=== PATIENT | female | born 1955 | race Caucasian/White ===

== ENCOUNTER 2019-06-18 06:59 | Outpatient (CLI) | payer MEDICARE, OTHER ==
[2019-06-18 07:23] LABS: #Basophils 0.1 thou/uL (0.0-0.2); #Eosinphils 0.2 thou/uL (0.0-0.7); #Lymphocytes 0.6 thou/uL (1.20-3.40); #Monocytes 0.5 thou/uL (0.11-0.59); #Neutrophils 2.1 thou/uL (1.40-6.50); %Basophils 1.6 % (0.0-1.0); %Eosinophils 5.4 % (0.0-10.0); %Lymphocytes 18.1 % (21.0-51.0); %Monocytes 13.3 % (0.0-10.0); %Neutrophils 61.7 % (42.0-75.0); Hemoglobin 13.2 g/dL (12.0-16.0); Mean Corpuscular HGB CONC 30.8 g/dL (32.0-36.0); Mean Corpuscular Hemoglobin 30.2 pg (27.0-31.0); Mean Platelet Volume 9.4 fL (7.4-10.4); Platelet Count 211 thou/uL (130-400); RBC Distribution Width 11.7 % (11.5-14.5); Red Blood Cell (RBC) Count 4.37 mill/uL (4.20-5.40); White Blood Cell (WBC) Count 3.4 thou/uL (4.8-10.8)
[2019-06-18 07:48] LABS: ALT (SGPT) 24 U/L (8-55); AST (SGOT) 25 U/L (5-34); Albumin 4.3 g/dL (3.4-4.8); Alkaline Phosphatase 63 U/L (40-110); Anion Gap 15 mmol/L (10-20); BUN (Urea Nitrogen) 23 mg/dL (9.8-20.1); Bilirubin, Total 0.6 mg/dL (0.2-1.2); Calc. Creatinine Clearance 0 mL/min (70-130); Calcium 9.6 mg/dL (7.8-10.44); Carbon Dioxide 25 mmol/L (23-31); Cardiac Risk 2.5 (Less than 4.5); Chloride 107 mmol/L (98-107); Cholesterol 193 mg/dl (< 200 Desired); Estimated GFR-MDRD 66; Glucose 108 mg/dL (80-115); HDL Cholesterol 77 mg/dL (>60 Neg Risk); LDL Cholesterol, Calculated 99 mg/dL; Potassium 4.3 mmol/L (3.5-5.1); Protein, Total 6.3 g/dL (6.0-8.3); Sodium 143 mmol/L (136-145); Triglycerides 86 mg/dL (Less than 150)
[2019-06-18 08:03] LABS: Thyroid Stimulating Hormone 1.8553 uIU/mL (0.35-4.94)
[2019-06-18 13:06] LABS: Vitamin D, 25 Hydroxy 91.2 ng/ml (> 30.0)
== END 2019-06-18 07:00 | disposition home or self-care (01) ==
LOC: MADLAB 06:59
PROVIDERS: ATTEND Family Medicine
DX: E78.00 Pure hypercholesterolemia, unspecified (principal); N95.1 Menopausal and female climacteric states
CPT/HCPCS: 36415; 80053; 80061; 82306; 84443; 85025

== ENCOUNTER 2021-06-06 06:54 | Outpatient (CLI) | payer MEDICARE, OTHER ==
[2021-06-06 08:32] LABS: #Eosinphils 0.2 thou/uL (0.0-0.7); #Lymphocytes 0.5 thou/uL (1.20-3.40); #Monocytes 0.4 thou/uL (0.11-0.59); #Neutrophils 2.1 thou/uL (1.40-6.50); %Basophils 1.4 % (0.0-1.0); %Eosinophils 6.3 % (0.0-10.0); %Lymphocytes 14.6 % (21.0-51.0); %Monocytes 12.2 % (0.0-10.0); %Neutrophils 65.5 % (42.0-75.0); Hemoglobin 13.4 g/dL (12.0-16.0); Mean Corpuscular HGB CONC 31.9 g/dL (32.0-36.0); Mean Corpuscular Hemoglobin 30.9 pg (27.0-31.0); Mean Corpuscular Volume 96.8 fL (78.0-98.0); Mean Platelet Volume 10.7 fL (7.4-10.4); Platelet Count 204 thou/uL (130-400); RBC Distribution Width 11.6 % (11.5-14.5); Red Blood Cell (RBC) Count 4.34 mill/uL (4.20-5.40); White Blood Cell (WBC) Count 3.1 thou/uL (4.8-10.8)
[2021-06-06 08:39] LABS: ALT (SGPT) 19 U/L (8-55); AST (SGOT) 22 U/L (5-34); Albumin 4.2 g/dL (3.4-4.8); Alkaline Phosphatase 65 U/L (40-110); Anion Gap 14 mmol/L (10-20); BUN (Urea Nitrogen) 14 mg/dL (9.8-20.1); Bilirubin, Total 0.5 mg/dL (0.2-1.2); Calc. Creatinine Clearance 0 mL/min (70-130); Calcium 9.7 mg/dL (7.8-10.44); Carbon Dioxide 26 mmol/L (23-31); Cardiac Risk 2.5 (Less than 4.5); Chloride 107 mmol/L (98-107); Cholesterol 184 mg/dl (< 200 Desired); Globulin 2.5 g/dL (2.4-3.5); Glucose 114 mg/dL (80-115); HDL Cholesterol 73 mg/dL (>60 Neg Risk); LDL Cholesterol, Calculated 95 mg/dL; Potassium 3.9 mmol/L (3.5-5.1); Protein, Total 6.7 g/dL (5.8-8.1); Sodium 143 mmol/L (136-145); Triglycerides 81 mg/dL (Less than 150)
[2021-06-06 09:12] LABS: Anisocytosis SLIGHT = 6-15 cells (100X) (0-5/hpf); Platelet Morphology Comment Appears Adequate
== END 2021-06-06 06:55 | disposition home or self-care (01) ==
LOC: MADLAB 06:54
PROVIDERS: ATTEND Family Medicine
DX: I10 Essential (primary) hypertension (principal); E78.00 Pure hypercholesterolemia, unspecified
CPT/HCPCS: 36415; 80053; 80061; 84443; 85025

== ENCOUNTER 2021-08-25 08:29 | Emergency (ER) | payer MEDICARE, OTHER | END 2021-08-25 10:10 | disposition home or self-care (01) | LOC: MADERS 08:29 | DX: R42 Dizziness and giddiness (principal); K21.9 Gastro-esophageal reflux disease without esophagitis; E78.5 Hyperlipidemia, unspecified; I10 Essential (primary) hypertension; E78.00 Pure hypercholesterolemia, unspecified; Z86.73 Personal history of transient ischemic attack (TIA), and cerebral infarction without residual deficits; Z79.82 Long term (current) use of aspirin | CPT/HCPCS: 99283 ==

== ENCOUNTER 2024-01-10 08:12 | Outpatient (CLI) | payer MEDICARE | END 2024-01-10 08:13 | disposition home or self-care (01) | LOC: MADRAD 08:12 | PROVIDERS: ATTEND Registered Nurse | DX: M25.572 Pain in left ankle and joints of left foot (principal); M79.89 Other specified soft tissue disorders ==